=== PATIENT | female | born 1985 | race Caucasian/White ===

== ENCOUNTER 2019-05-08 07:25 | Outpatient (CLI) | payer OTHER, SELFPAY ==
--- NOTE | 2019-05-08 07:32 | MM_ITS ---
WS: [id number] SCREENING DIGITAL MAMMOGRAM WITH CAD HISTORY: SCREENING COMPARISON: None available. Bilateral CC and MLO views submitted. Computer aided detection analyzed. Breast composition: There are scattered areas of fibroglandular density. Focal asymmetries measuring about 12 mm in the superior breast on the lateral projections only. Probably superimposed fibroglandu lar densities. RIGHT breast: Spot compression views (MLO). True ML. Ultrasound to follow if abnormality persists. LEFT breast: Spot compression views (MLO). True ML. Ultrasound to follow if abnormality persists. MM/[place] [id number] IMPRESSION: BI-RADS: 0-Incomplete: Need additional imaging evaluation FOLLOW UP: Need Additional Imaging
== END 2019-05-08 07:26 | disposition home or self-care (01) ==
LOC: RADSHAW 07:28
PROVIDERS: Visit Provider Nurse Practitioner Family
DX: Z12.31 Encounter for screening mammogram for malignant neoplasm of breast (principal)
CPT/HCPCS: 77067

== ENCOUNTER 2019-06-05 07:22 | Outpatient (CLI) | payer OTHER, SELFPAY ==
--- NOTE | 2019-06-05 07:37 | US_ITS ---
WS: [id number] ADDITIONAL VIEWS BILATERAL MAMMOGRAM AND BILATERAL BREAST ULTRASOUND ADDITIONAL VIEWS BILATERAL MAMMOGRAM HISTORY: ABNORMAL MAMMOGRAM COMPARISON: 05/08/2019 Right breast: Asymmetry nearly resolves in the superior RIGHT breast with additional views. Margins a long the asymmetry are concave suggesting this is probably a benign process. Left breast: Asymmetry nearly resolves in the superior LEFT breast with additional views. Margins juan antonio ng the asymmetry are concave suggesting this is probably a benign process. BREAST ULTRASOUND Bilateral breast ultrasound directed to the upper-outer quadrants demonstrates no abnormality. There is no shadowing, solid or cystic mass. Favor benign process. US/US breast BI limited* [id number] IMPRESSION: BI-RADS: 2-Benign FOLLOW UP: 1 Year Follow-up
== END 2019-06-05 07:23 | disposition home or self-care (01) ==
LOC: RADSHAW 07:24
PROVIDERS: PCP Nurse Practitioner Family; Visit Provider Nurse Practitioner Family
DX: R92.8 Other abnormal and inconclusive findings on diagnostic imaging of breast (principal)
CPT/HCPCS: 76642; 77066